=== PATIENT | female | born 1995 | race Caucasian/White ===

== ENCOUNTER → 2022-07-08 08:57 | Outpatient (BNVA) | payer OTHER, SELFPAY | PROVIDERS: Visit Provider Psychiatry & Neurology Neurology | DX: R20.2 Paresthesia of skin (principal); R52 Pain, unspecified | CPT/HCPCS: 99202 ==

== ENCOUNTER 2022-09-30 12:40 | Outpatient (REF) | payer OTHER, SELFPAY ==
--- NOTE | 2022-09-30 09:30 | EMG_ITS ---
Please see scanned EMG / Nerve Conduction Report. MTDD
== END 2022-09-30 12:41 | disposition home or self-care (01) ==
LOC: HO.NEURO 12:40
PROVIDERS: Visit Provider Psychiatry & Neurology Neurology
DX: R20.2 Paresthesia of skin (principal)
CPT/HCPCS: 95885; 95910

== ENCOUNTER → 2022-10-09 08:57 | Outpatient (BNVA) | payer OTHER, SELFPAY | PROVIDERS: Visit Provider Nurse Practitioner Family | DX: R20.2 Paresthesia of skin (principal); R52 Pain, unspecified; Z79.899 Other long term (current) drug therapy | CPT/HCPCS: 99212 ==

== ENCOUNTER 2023-07-02 13:26 | Outpatient (AMB) | payer OTHER, SELFPAY ==
[2023-07-02 14:21] VITALS: BP 100/72; PULSE 67; TEMP 36.6; O2SAT 100; BMI 45.4
--- NOTE | 2023-07-02 14:21 | AM.OFFWIN_ITS ---
Intake Vital Signs 07/02/23 14:21 Height 4 ft 10.5 in Weight 221 lb BMI 45.4 BP 100/72 Blood Pressure Location Lt brachial Position Sitting Pulse 67 Pulse Source Pulse Oximeter Temp 97.9 F Temp Source Temporal Artery Scan Pulse Oximetry (%) 100 Intake Visit Reasons: EP dizzy today only Intake Note: pt is here for c/o dizziness Patient Tobacco Use Status: Former Tobacco user Allergies No Known Allergies [No Known Allergies*] Allergy (Verified 07/02/23 14:22) Do you need a note to return to daycare/school/sports/work: Yes HPI HPI Comments History of Present Illness Details This is a 28-year-old female who presents to the office today for sick visit. Patient complaining of sinus congestion and rhinorrhea with green nasal drainage as well as low-grade fever/chills x5 days. Patient states she was seen at an urgent care center several days ago when she was diagnosed with sinusitis and was sent home with symptomatic management. Patient states that her symptoms have been worsening to the point where patient now feels dizzy like the room is spinning. She denies any numbness/weakness/paresthesias of extremities, facial asymmetry, slurred speech, or visual disturbances. PFSH Medical History Arthritis Depression Diabetes Dog bite of extremity Surgical History Hx of cholecystectomy Social History (Updated 10/09/22 @ 09:07 by Salma Estrada CMA) Household Members: Spouse and Children Alcohol intake: current Alcohol intake frequency: holidays/special occasions only Patient Tobacco Use Status: Former Tobacco user Substance Use Type: Marijuana Review of Systems Const All systems reviewed & are unremarkable except as noted in HPI and below Reports no additional complaints Eyes Reports no additional complaints ENT Reports no additional complaints Card Reports no additional complaints Resp Reports no additional complaints GI Reports no additional complaints Reports no additional complaints Musc Reports no additional complaints Skin/Breast Reports system reviewed and no additional complaints, except as documented Neuro Reports no additional complaints Psych Reports no additional complaints Endo Reports no additional complaints Yovany/Lymph Reports no additional complaints Aller/Immun Reports no additional complaints Physical Exam Vital Signs: Last Vital Signs Temp 97.9 F 07/02/23 14:21 Pulse 67 07/02/23 14:21 BP 100/72 07/02/23 14:21 Pulse Ox 100 07/02/23 14:21 BMI result Body Mass Index 45.4 Const Other: Vital signs reviewed. Constitutional: Non-toxic appearing. No acute distress. Well-developed and well-nourished. HEENT: Normocephalic and atraumatic. There appears to be fluid/effusion behind the tympanic membrane bilaterally but the tympanic membrane is without erythema. External auditory canals without erythema or edema bilaterally. Moist mucous membranes. No pharyngeal erythema or exudates. Skin: Warm and dry. No rashes or lesions noted. Neck: Full and painless range of motion. No cervical lymphadenopathy. Cardio: Regular rate and rhythm. No murmurs, gallops, or rubs. No lower extremity edema. No JVD. Pulmonary: No respiratory distress. No accessory muscle usage. Clear to auscultation bilaterally without wheezing, crackles, or rhonchi. Gastrointestinal: Soft, nontender, and nondistended in all 4 quadrants. Normoactive bowel sounds in all 4 quadrants. Genitourinary: No CVA tenderness. Musculoskeletal: Normal range of motion in joints throughout the body. No deformity or other signs of injury. Neuro: Alert and oriented x4. Cranial nerves 2-12 grossly intact. No focal d eficits appreciated. Psych: Normal mood and affect. Assessment & Plan Assessment & Plan (1) Acute bacterial rhinosinusitis: Code(s): J01.90 - Acute sinusitis, unspecified; B96.89 - Other specified bacterial agents as the cause of diseases classified elsewhere Plan: This is a 28-year-old female presenting to the office complaining of sinus congestion, rhinorrhea with green nasal drainage, and dizziness. On physical examination, there is fluid/effusion behind the tympanic membranes bilaterally. Patient very likely has an acute bacterial rhinosinusitis/acute otitis media in the fluid/effusion is likely causing vertigo. Her neurological exam is within normal limits without focal deficits and patient was able to ambulate without dizziness. Patient was sent home on p.o. amoxicillin/clavulanate 875/125 mg twice daily x7 days, which will cover rhinosinusitis and otitis media. She was also given p.o. meclizine 25 mg 3 times daily as needed for dizziness. Recommended symptomatic management including rest, increased fluids, advil/tylenol for pain/fever, and over the counter throat lozenges/decongestants. Patient advised to follow up here or go to the emergency room for worsening/persistent symptoms. Patient verbalized understanding and is agreeable with the plan. Medications: New amoxicillin-pot clavulanate 875-125 mg 1 tab PO BID 14 tabs 0RF meclizine 25 mg PO TID PRN 20 tabs 0RF dizziness or vertigo Coding Level of Care Code Est Pt Level 3 (76147) Diagnoses Acute bacterial rhinosinusitis J01.90; B96.89
== END 2023-07-02 14:37 | disposition home or self-care (01) ==
PROVIDERS: Visit Provider Physician Assistant Medical
DX: J01.90 Acute sinusitis, unspecified (principal); B96.89 Other specified bacterial agents as the cause of diseases classified elsewhere
CPT/HCPCS: 99213

== ENCOUNTER 2023-07-13 08:54 | Outpatient (AMB) | payer OTHER, SELFPAY ==
[2023-07-13 09:37] VITALS: BP 100/70; PULSE 80; TEMP 36.8; O2SAT 98; BMI 45.4
--- NOTE | 2023-07-13 09:37 | AM.OFFWIN_ITS ---
Intake Vital Signs 07/13/23 09:37 Height 4 ft 10.5 in Weight 221 lb BMI 45.4 BP 100/70 Blood Pressure Location Rt brachial Position Sitting Pulse 80 Pulse Source Pulse Oximeter Temp 98.2 F Temp Source Temporal Artery Scan Pulse Oximetry (%) 98 Oxygen Delivery Method Room Air Intake Visit Reasons: EST/left ankle pain/[phone] Intake Note: pt is here for c.o left ankle pain, due to fall down stairs at home on wednesday Patient Tobacco Use Status: Former Tobacco user Allergies No Known Allergies [No Known Allergies*] Allergy (Verified 07/13/23 09:38) Do you need a note to return to daycare/school/sports/work: Yes HPI HPI Comments History of Present Illness Details patient is a 28-year-old female in today for sick visit. She states that 3 days prior to the appointment she fell down 3 sets of stairs and landed on her left ankle. 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 She denies hearing any popping, cracking, or clunking at the time of the injury. She has been able to bear weight on the affected extremity, states she now has a limp. She has been utilizing Advil with good effect. No complaints of tingling, numbness, or discoloration of the skin. There is edema to the left ankle near the left lateral malleolus, superficial to the extensor digitorum region. Patient has full range of motion of the extremity. Strength is 4/5, with pain against resistance. Patient has +2 pulses bilaterally. Skin is warm and dry and normal for ethnicity. No sensory deficit. This is likely to be a sprain of the left ankle. Will obtain x-rays to rule out fracture. This is unlikely to be the neurovascular compromise or poses a threat to the limb. Will prescribe meloxicam to be taken as directed for pain. Will provide Alfred bandage wrap to help with support. Patient has been advised to rest the affected limb. Patient has been educated on side effects of the medication and how to take appropriately. Patient has been educated on signs of worsening symptoms and when to return to the walk-in or when to present to the emergency room. Patient has been advised to follow-up with her PCP. Patient is agreeable to this plan. PFSH Medical History Arthritis Depression Diabetes Dog bite of extremity Surgical History Hx of cholecystectomy (Updated 10/09/22 @ 09:07 by Salma Estrada CMA) Household Members: Spouse and Children Alcohol intake: current Alcohol intake frequency: holidays/special occasions only Patient Tobacco Use Status: Former Tobacco user Substance Use Type: Marijuana Review of Systems Const All systems reviewed & are unremarkable except as noted in HPI and below Card Denies chest pain and Denies dyspnea Resp Denies dyspnea GI Denies diarrhea, Denies nausea and Denies vomiting Musc Reports abnormal gait ( Limping on left foot), Denies deformity, Reports arthralgias, Denies limited range of motion, Denies numbness and Denies tingling Neuro Reports abnormal gait ( Limping on left foot), Denies numbness and Denies tingling Physical Exam Vital Signs: Last Vital Signs Temp 98.2 F 07/13/23 09:37 Pulse 80 07/13/23 09:37 BP 100/70 07/13/23 09:37 Pulse Ox 98 07/13/23 09:37 Oxygen Delivery Method Room Air 07/13/23 09:37 BMI result Body Mass Index 45.4 vital signs reviewed and are stable Const General: cooperative, healthy appearing and no acute distress Orientation/consciousness: oriented to person Limitations: no limitations Resp Auscultation: clear to auscultation bilaterally Cardio Rate: regular rate Rhythm: regular rhythm Heart sounds: S1 normal heart sound present and S2 normal heart sound present Neuro General: oriented to person Extrem General: Yes normal to inspection, Yes full ROM, Yes capillary refill normal, No no pedal edema, No calf tenderness and Yes edema Left lower extremity: normal to inspection, full ROM, normal capillary refill, edema Details: non-pitting, ankle Details: swelling Details: laterally and foot ( +2 pedal pulses bilaterally) Results Reviewed Results Reviewed: will review x-ray results with patient. Assessment & Plan Assessment & Plan (1) Left ankle sprain: Code(s): S93.402A - Sprain of unspecified ligament of left ankle, initial encounter Qualifiers: Encounter type: initial encounter Involved ligament of ankle: unspecified ligament Qualified Code(s): S93.402A - Sprain of unspecified ligament of left ankle, initial encounter Plan: patient had x-ray of left ankle in office. Initial reading does not appear to show fracture. Will wrap the ankle in an Alfred bandage to provide support. Will prescribe meloxicam to help with pain. Patient has been advised to rest the affected limb, into use supportive measures like raising the affected limb and applying ice. Patient has been educated on side effects of medication and how to take them appropriately. Patient has been educated on signs of worsening symptoms and when to report back to the walk-in her to report to the emergency room. She has been advised to follow-up with her PCP. She has been informed that she will receive a call with the official results of the x-ray. Patient is agreeable to this plan. Orders: Orders XR foot LT 2V Today M79.672 - Pain in left foot XR ankle LT 2V Today M25.572 - Pain in left ankle and joints of left foot Coding Level of Care Code New Pt Level 4 (83683) Diagnoses Sprain of left ankle, unspecified ligament, initial encounter S93.402A Encounter type: initial encounter Involved ligament of ankle: unspecified ligament Time Spent (min) 20
== END 2023-07-13 10:52 | disposition home or self-care (01) ==
PROVIDERS: Visit Provider Nurse Practitioner Primary Care
DX: S93.402A Sprain of unspecified ligament of left ankle, initial encounter (principal)
CPT/HCPCS: 99204

== ENCOUNTER 2023-07-13 10:16 | Outpatient (REF) | payer OTHER, SELFPAY ==
--- NOTE | ~2023-07-13 | XR_ITS ---
EXAMINATION: Left foot and left ankle. CLINICAL INDICATIONS: Pain in left ankle and left foot. COMPARISON: None. TECHNIQUE: 3 views left foot and 2 views left ankle. FINDINGS: LEFT ANKLE: The ankle mortise and subtalar joints are normal. No visible acute fracture, dislocation or subluxation seen. There is a small calcaneal heel enthesophyte. The soft tissues are normal. LEFT FOOT: The visualized tarsal, metatarsal and phalanges are normal. The joint spaces and alignment. No bony erosive changes. No fracture or dislocation seen the soft tissues are normal. XR/XR foot LT 2V IMPRESSION: Small calcaneal heel enthesophyte otherwise unremarkable left ankle. Unremarkable left foot.
--- NOTE | ~2023-07-13 | XR_ITS ---
EXAMINATION: Left foot and left ankle. CLINICAL INDICATIONS: Pain in left ankle and left foot. COMPARISON: None. TECHNIQUE: 3 views left foot and 2 views left ankle. FINDINGS: LEFT ANKLE: The ankle mortise and subtalar joints are normal. No visible acute fracture, dislocation or subluxation seen. There is a small calcaneal heel enthesophyte. The soft tissues are normal. LEFT FOOT: The visualized tarsal, metatarsal and phalanges are normal. The joint spaces and alignment. No bony erosive changes. No fracture or dislocation seen the soft tissues are normal. XR/XR ankle LT 2V IMPRESSION: Small calcaneal heel enthesophyte otherwise unremarkable left ankle. Unremarkable left foot.
== END 2023-07-13 10:17 | disposition home or self-care (01) ==
LOC: HO.HMGCX 10:16
PROVIDERS: Visit Provider Nurse Practitioner Primary Care
DX: M25.572 Pain in left ankle and joints of left foot (principal); M79.672 Pain in left foot
CPT/HCPCS: 73600; 73620

== ENCOUNTER 2023-08-17 08:10 | Outpatient (AMB) | payer MEDICAID, SELFPAY ==
[2023-08-17 08:43] VITALS: BP 126/76; PULSE 99; TEMP 36.6; O2SAT 97; BMI 46.4
--- NOTE | 2023-08-17 08:43 | AM.OFFWIN_ITS ---
Intake Vital Signs 08/17/23 08:43 Height 4 ft 10.5 in Weight 226 lb BMI 46.4 BP 126/76 Blood Pressure Location Lt brachial Position Sitting Pulse 99 Pulse Source Pulse Oximeter Temp 97.8 F Pulse Oximetry (%) 97 Oxygen Delivery Method Room Air Intake Visit Reasons: EP, painful blister in vaginal area ([phone]) Intake Note: pt is here today for pain blister in vaginal area started 2 days ago Patient Tobacco Use Status: Former Tobacco user Allergies No Known Allergies [No Known Allergies*] Allergy (Verified 08/17/23 09:18) Medication List - Last Reconciled 08/17/23 by Alex Arguelles MD albuterol sulfate 90 mcg/actuation (Ventolin HFA) 1 - 2 puffs inhalation Q4H PRN amoxicillin-pot clavulanate 875-125 mg 1 tab PO BID gabapentin 300 mg PO BEDTIME meclizine 25 mg PO TID PRN meloxicam 15 mg PO DAILY metformin ER 1,000 mg PO BID Do you need a note to return to daycare/school/sports/work: No HPI EP, painful blister in vaginal area ([phone]) HPI Details 28-year-old female presents to the [facility] for a sick visit. Patient has developed a blister and a painful lesion in the vaginal area. She is diabetic and her her blood sugars are fluctuating. She does not follow a proper diet. [facility] Medical History Arthritis Depression Diabetes Dog bite of extremity Surgical History Hx of cholecystectomy Social History (Updated 10/09/22 @ 09:07 by Salma Estrada CMA) Household Members: Spouse and Children Alcohol intake: current Alcohol intake frequency: holidays/special occasions only Patient Tobacco Use Status: Former Tobacco user Substance Use Type: Marijuana Physical Exam Vital Signs: Last Vital Signs Temp 97.8 F 08/17/23 08:43 Pulse 99 08/17/23 08:43 BP 126/76 08/17/23 08:43 Pulse Ox 97 08/17/23 08:43 Oxygen Delivery Method Room Air 08/17/23 08:43 BMI result Body Mass Index 46.4 Other: Examination done with a female medical numerical control operator in the room. Vaginal area: Out to lip is slightly swollen at the lower end and tender to touch. A minimal indurated lesion palpable. Assessment & Plan Assessment & Plan (1) Vaginal cuff cellulitis: Code(s): N76.0 - Acute vaginitis Plan: Antibiotics called in. Warm compress suggested. If symptoms do not improve to follow-up here. Coding Level of Care Code Est Pt Level 3 (41286) Diagnoses Vaginal cuff cellulitis N76.0
== END 2023-08-17 09:22 | disposition home or self-care (01) ==
PROVIDERS: Visit Provider Internal Medicine
DX: N76.0 Acute vaginitis (principal)
CPT/HCPCS: 99213

== ENCOUNTER → 2024-01-12 13:25 | Outpatient (RCR) | payer OTHER, SELFPAY ==
--- NOTE | 2022-09-16 11:01 | MHC.OT.EP ---
[address] [phone] Occupational Therapy Plan of Care Date of Evaluation: 09/16/22 Diagnosis: Right arm weakness Pain Location: Pain R forearm Ache and burning 4/10 Pain Score: 4 Pain Scale Used: Numeric (0 - 10) Aggravating Factors: Lifting, hypersensitive to touch Alleviating Factors: Heat, rest Pt. was prescribed Gabapentin although reports it makes her tired and she is not compliant with taking it Assessment: Pt is a 27 y/o female s/p right forearm dog bite December 2021 with resultant pain, numbness and decreased right UE strength. Pt. 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 Right gross grasp is 18# compared to 55# on the left. A 36.4% limitation is reported per the Quick DASH assessment. Robbin would benefit from short term skilled OT to address noted barriers and regain strength for improvement in functional activities. Frequency and Duration: The patient will be seen 1x/wk for 4 weeks Short Term Goals: Pain free with BADL's/IADL's IND with strengthening HEP Improve R gross grasp >25# IND with scar management and desensitizing techniques Quick DASH <20% [facility] Goals: Same as above Treatment Plan: Therapeutic Exercise Therapeutic Activity Home Exercise Program Neuro Re-ed Patient Education Desensitization/Sensory Re-ed Edema Control Fluidotherapy MHP Soft Tissue Mobilization Kinesiotaping Electronically Signed By: Jenny Landeros MS OTR/L Please Sign and return to therapist. Thank you once again for your referral.
== END | disposition home or self-care (01) ==
LOC: HO.OT 09-16 09:33
PROVIDERS: Visit Provider Psychiatry & Neurology Neurology
DX: R53.1 Weakness (principal)
CPT/HCPCS: 97110; 97140; 97165